=== PATIENT | male | born 1950 | race Caucasian/White ===

== ENCOUNTER → 2018-08-16 08:15 | Outpatient (CLI) | payer MEDICARE ==
--- NOTE | ~2018-08-16 | ST ---
PATIENT:ARACELI ESQUEDA MEDICAL RECORD: [id number] SEX: M LOCATION:[facility] ORDER #: ADMISSION DATE: 08/16/18 AGE OF PATIENT: 68 REFERRING PHYSICIAN: INTERPRETING PHYSICIAN: EMY ALVAREZ MD DATE OF SERVICE: 08/16/2018 PROCEDURE: Nuclear stress test. INDICATION: Angina, coronary artery disease, hypertension, and hyperlipidemia. He was exercised on standard Thomas protocol for 5 minutes with 31.9 mCi of sestamibi injected at peak stress. Rest images were done previously with 10.9 mCi. FINDINGS: Gated SPECT reveals preserved ejection fraction at 56% with good wall motioning, thickening, and brightening throughout all segments. SPECT imaging Cardiolite was used as myocardial perfusion agent. There is homogeneous uptake throughout all segments at rest and stress with no evidence of inducible ischemia or previous infarction. OVERALL IMPRESSION: 1. This is a normal nuclear stress test with no evidence of inducible ischemia or previous infarction. 2. Gated SPECT reveals preserved ejection fraction at 56%. In this patient with ongoing symptomatology, the current scan does not suggest the presence of hemodynamically significant coronary artery disease. Evaluate noncardiac etiology of chest pain. TRANSINT:[id number] Voice Confirmation ID: [id number] DOCUMENT ID: [id number] EMY ALVAREZ MD at 1718 CC: [id number] DICTATION DATE: 08/17/18 1147 CORRUGATOR OPERATOR: 08/18/18 0139 DEP CLI 08/16/18 [id number] [place] [id number]
== END | disposition home or self-care (01) ==
LOC: D.HCCARDIO 08:15
DX: I25.119 Atherosclerotic heart disease of native coronary artery with unspecified angina pectoris (principal)